=== PATIENT | female | born 1985 | race African-American/Black ===

== ENCOUNTER 2021-05-08 10:30 | Inpatient (IN) | payer OTHER ==
[2021-05-08 13:40] VITALS: BMI 40.1
[2021-05-08] MEDS ORDERED: ONDANSETRON 4 MG/2 ML VIAL IVPUSH PRN (14:25)
[2021-05-08] MEDS ORDERED: morphine SULFATE (PF) 1 MG/2 ML SYRINGE ONE (14:33)
[2021-05-08] MEDS ORDERED: ceFAZolin SODIUM 1 GM VIAL ONE (15:05)
[2021-05-08] MEDS ORDERED: ePHEDrine SULFATE 50 MG/1 ML AMPULE ONE (15:13)
[2021-05-08] MEDS ORDERED: CITRIC ACID/SODIUM CITRATE 30 ML UNIT-DOSE CUP PO ONE (16:13)
[2021-05-08] MEDS ORDERED: ELECTROLYTE-148 SOLN 500 ML IV ONE (16:13)
[2021-05-08] MEDS ORDERED: IBUPROFEN 800 MG/8 ML IJ IVPB PRN (16:14)
[2021-05-08] MEDS ORDERED: METHYLERGONOVINE MALEATE 0.2 MG/1 ML AMP IM PRN (16:14)
[2021-05-08] MEDS ORDERED: SENNOSIDES/DOCUSATE COMBO (SENNA PLUS) TABLET (UD) PO PRN (16:14)
[2021-05-08] MEDS ORDERED: ELECTROLYTE-148 SOLN 1,000 ML IV SCH (16:15)
[2021-05-08] MEDS ORDERED: OXYTOCIN 20 UNITS in 0.9% NS 20 UNIT/1,000 ML INFUS.BAG IV SCH (16:15)
[2021-05-08] MEDS ORDERED: OXYTOCIN 20 UNITS in 0.9% NS 20 UNIT/1,000 ML INFUS.BAG IV ONE (17:34)
[2021-05-09] MEDS: ACETAMINOPHEN 325 MG TABLET (FP) PO PRN ×3 (01:26→17:48)
[2021-05-09] MEDS ORDERED: oxyCODONE HCL 5 MG TABLET PO PRN ×2 (04:15)
[2021-05-09 08:32] LABS: BASO % 0.2 % (0-2.0); EOS % 0.3 % (0-4.5); HEMATOCRIT 31.7 % (32.4-45.2); HEMOGLOBIN 10.7 GM/dL (10.7-15.3); MCH 26.7 pg (25.7-33.7); MCHC 33.9 g/dl (32.0-36.0); MEAN CELL VOLUME 78.6 fl (80-96); MEAN PLT VOLUME 8.4 fl (7.5-11.1); MONO % 7.2 % (3.8-10.2); NEUT % 81.3 % (42.8-82.8); PLATELET COUNT 196 10^3/uL (134-434); RBC 4.03 M/mm3 (3.60-5.2); RDW 16.6 % (11.6-15.6); WHITE BLOOD COUNT 8.9 K/mm3 (4.0-10.0)
[2021-05-09] MEDS: PRENATAL VITAMINS W/ FOLIC ACID TABLET (FP) PO SCH (09:52)
[2021-05-09] MEDS ORDERED: BISACODYL 10 MG SUPP.RECT RC PRN (16:15)
[2021-05-09] MEDS: SIMETHICONE 80 MG TAB.CHEW (FP) PO PRN (22:12)
[2021-05-10] MEDS: ACETAMINOPHEN 325 MG TABLET (FP) PO PRN (03:38)
[2021-05-10] MEDS: SIMETHICONE 80 MG TAB.CHEW (FP) PO PRN (03:39)
[2021-05-10] MEDS: IBUPROFEN 600 MG TABLET (FP) PO PRN ×2 (03:39→10:17)
[2021-05-10 10:14] VITALS: BP 106/72; PULSE 101; TEMP 98.2
[2021-05-10] MEDS: PRENATAL VITAMINS W/ FOLIC ACID TABLET (FP) PO SCH (10:17)
== END 2021-05-10 14:00 | disposition home or self-care (01) | DRG 788 ==
LOC: JLDR 12:27 → J3W 17:53
PROVIDERS: ADMIT Obstetrics & Gynecology; ATTEND Obstetrics & Gynecology
PROC: 10D00Z1 Extraction of Products of Conception, Low, Open Approach (ICD-10-PCS; principal; 2021-05-08)
DX: O48.0 Post-term pregnancy (principal); O24.420 Gestational diabetes mellitus in childbirth, diet controlled; Z3A.40 40 weeks gestation of pregnancy; Z37.0 Single live birth
CPT/HCPCS: 36415; 85025; 88307-TC